=== PATIENT | female | born 1985 | race Caucasian/White ===

== ENCOUNTER 2019-08-19 08:15 | Outpatient (CLI) | payer OTHER ==
[2019-08-19] MEDS ORDERED: ACET-1600 PO (08:37)
== END 2019-08-19 23:59 | disposition home or self-care (01) ==
LOC: STAR 08:15
PROVIDERS: ATTEND Specialist
DX: Z11.59 Encounter for screening for other viral diseases (principal)
CPT/HCPCS: U0001-CS

== ENCOUNTER 2019-08-23 05:41 | Day surgery (SDC) | payer OTHER ==
[~2019-08-23] VITALS: Ht 172.7 cm; Wt 79.0 kg
[~2019-08-23 05:41] MED LIST: ACET-1600 PO
[2019-08-23] MEDS ORDERED: CHLORHEXIDINE 15 ML UDC MM STA (06:46)
[2019-08-23] MEDS ORDERED: LACTATED RINGERS 1,000 ML IV SCH (06:46)
[2019-08-23] MEDS ORDERED: CEFOTETAN PMX 2GM/50ML 50 ML IV STA (06:49)
[2019-08-23] MEDS ORDERED: BUPIVACAINE/PF 0.25% ONE (06:54)
[2019-08-23] MEDS ORDERED: INDIGO CARMINE 0.8%, 5ML ONE (06:54)
[2019-08-23] MEDS ORDERED: SILVER NITRATE STICK TP ONE (06:55)
[2019-08-23] MEDS ORDERED: FENTANYL PF 250 MCG/5ML ONE (07:20)
[2019-08-23] MEDS ORDERED: MIDAZOLAM 1 MG/ML, 2ML ONE (07:20)
[2019-08-23 07:26] LABS: HCG UR SG 1.009 (1.003-1.030)
[2019-08-23] MEDS ORDERED: LIDOCAINE PF 2%, 5ML ONE (07:28)
[2019-08-23] MEDS ORDERED: ONDANSETRON 2MG/ML, 2ML IVPush PRN (08:30)
[2019-08-23] MEDS ORDERED: LORazepam 2 MG/ML, 1ML IVPush PRN (08:30)
[2019-08-23] MEDS ORDERED: MEPERIDINE/PF 25MG/0.5ML IVPush PRN (08:30)
[2019-08-23] MEDS ORDERED: PROMETHAZINE 25 MG/ML, 1ML IVPush PRN (08:30)
[2019-08-23] MEDS ORDERED: DIAZEPAM 5 MG/ML, 2ML IVPush PRN ×2 (08:30→16:30)
[2019-08-23] MEDS ORDERED: HYDROmorphone 1 MG/ML, 1ML INJ IVPush PRN (08:30)
[2019-08-23] MEDS ORDERED: ACETAMINOPHEN 325 MG TABLET PO PRN (08:30)
[2019-08-23] MEDS ORDERED: PROMETHAZINE 25 MG SUPP PR PRN (08:30)
[2019-08-23] MEDS ORDERED: OXYcodone 5 MG/5 ML ORAL.SOL UDC PO PRN (08:30)
[2019-08-23] MEDS ORDERED: SUCCINYLCHOLINE 20 MG/ML, 10ML ONE (08:47)
[2019-08-23] MEDS ORDERED: NEOSTIGMINE 1 MG/ML, 10ML ONE (08:47)
[2019-08-23] MEDS ORDERED: ROCURONIUM 10MG/ML,5ML ONE (08:47)
[2019-08-23] MEDS ORDERED: DEXAMETHASONE 4 MG/ML, 1ML ONE (08:47)
[2019-08-23] MEDS ORDERED: PROPOFOL 10 MG/ML, 20ML ONE (08:47)
[2019-08-23] MEDS ORDERED: GLYCOPYRROLATE 0.2MG/1ML, 5ML ONE (08:47)
[2019-08-23] MEDS ORDERED: CEFAZOLIN 1,000 MG ONE (08:47)
[2019-08-23] MEDS ORDERED: ONDANSETRON 2MG/ML, 2ML ONE (08:47)
[2019-08-23] MEDS ORDERED: SUGAMMADEX 200 MG/2 ML IVPush ONE (09:08)
[2019-08-23] MEDS ORDERED: KETOROLAC 30 MG/1 ML ONE ×2 (09:29→16:03)
[2019-08-23] MEDS ORDERED: OXYcodone 5 MG/5 ML ORAL.SOL UDC ONE ×2 (09:41→09:45)
[2019-08-23] MEDS ORDERED: ACETAMINOPHEN 650 MG/20.3 ML UDC ONE (09:41)
[2019-08-23] MEDS ORDERED: ACETAMINOPHEN 325 MG TABLET ONE (09:42)
[2019-08-23] MEDS ORDERED: FENTANYL PF 100 MCG/2ML ONE (09:42)
[2019-08-23] MEDS: FENTANYL PF 100 MCG/2ML IV PRN ×2 (09:45→10:00)
[2019-08-23] MEDS ORDERED: MEPERIDINE/PF 25MG/ML,1ML ONE (10:00)
[2019-08-23] MEDS ORDERED: KETOROLAC 30 MG/1 ML IVPush ONE (10:00)
[2019-08-23] MEDS ORDERED: OXYcodone/APAP 5/325MG TABLET PO PRN (16:00)
[2019-08-23] MEDS ORDERED: KETOROLAC 30 MG/1 ML IVPush PRN (16:00)
[2019-08-23] MEDS ORDERED: OXYcodone/APAP 5/325MG TABLET ONE (16:03)
== END 2019-08-23 16:30 | disposition home or self-care (01) ==
LOC: OUT 05:41
PROVIDERS: ATTEND Specialist
DX: N94.6 Dysmenorrhea, unspecified (principal); D27.0 Benign neoplasm of right ovary; N80.0 Endometriosis of uterus; N92.0 Excessive and frequent menstruation with regular cycle; N80.1 Endometriosis of ovary; Z98.890 Other specified postprocedural states; Z72.89 Other problems related to lifestyle
CPT/HCPCS: 58552; 81025; 88305; 88307; 88331; J0690; J1100; J1885; J2175; J2250; J2405; J2704; J2710; J3010; J3490; J7120; S2900; J0330